=== PATIENT | female | born 1955 | race American Indian/Alaskan Native ===

== ENCOUNTER 2021-01-26 00:11 | Emergency (ER) | payer MEDICAID ==
[2021-01-26 00:37] VITALS: BP 160/79
[2021-01-26] MEDS ORDERED: ACETAMINOPHEN 500 MG TAB PO ONE (03:38)
--- NOTE | 2021-01-26 03:45 | Emergency Department Report ---
ED General Adult HPI - General Chief complaint: Skin/Abscess/Foreign Body Stated complaint: HERNIA Time Seen by Provider: 01/26/21 03:34 Source: patient Mode of arrival: Ambulatory Limitations: No Limitations - History of Present Illness Initial comments: Patient 65-year-old -Chinese female who presents for constipation x3 days., Patient states for 10 bilateral lower abdominal pain and cramping that is intermittent. States one small hard bowel movement today. With some relief however pain is returned. Patient states that secondary complaint of yeast and he will area. There is been no fever, chills, nausea or vomiting, patient is tolerating p.o. intake at this time. - Related Data Home Medications Medication Instructions Recorded Confirmed Last Taken ALPRAZolam [Alprazolam] 1 tab PO DAILY 11/17/15 11/17/15 11/16/15 Albuterol Sulfate [Ventolin HFA] 2 puff IH PRN 11/17/15 11/17/15 2 Weeks Ago ~11/03/15 Cetirizine HCl [ZyrTEC 10mg rapdis] 1 tab PO DAILY 11/17/15 11/17/15 11/16/15 Oxycodone HCl/Acetaminophen 1 tab PO Q6H PRN 11/17/15 11/17/15 11/16/15 [OxyCODONE-Acetaminophen 10-325] Previous Rx's Medication Instructions Recorded Last Taken Type traMADoL [Ultram 50 MG tab] 50 mg PO Q6HR PRN #20 tablet 11/14/15 Unknown Rx cephALEXin [Keflex] 500 mg PO Q8HR #21 cap 11/28/15 Unknown Rx HYDROcodone/APAP 5-325 [[place] 1 each PO Q6HR PRN #12 tablet 04/01/16 Unknown Rx 5-325 mg TAB] Clotrimazole 1% [Lotrimin 1%] 1 applic TP BID #1 tube 01/26/21 Unknown Rx bisacodyL [Dulcolax suppos] 10 mg [place] QDAY PRN #7 supp.rect 01/26/21 Unknown Rx polyethylene glycoL 3350 [Miralax 17 gm PO BID #14 packet 01/26/21 Unknown Rx 3350] Allergies Allergy/AdvReac Type Severity Reaction Status Date / Time ibuprofen Allergy Intermediate Hives Verified 11/17/15 12:19 tramadol AdvReac Headache Verified 04/01/16 00:04 ED Review of Systems ROS: Stated complaint: HERNIA Other details as noted in HPI Constitutional: denies: chills, fever Eyes: denies: eye pain, eye discharge, vision change ENT: denies: ear pain, throat pain Respiratory: denies: cough, shortness of breath, wheezing Cardiovascular: denies: chest pain, palpitations Endocrine: no symptoms reported Gastrointestinal: abdominal pain, constipation. denies: nausea, vomiting Genitourinary: denies: urgency, dysuria, discharge Musculoskeletal: denies: back pain, joint swelling, arthralgia Skin: denies: rash, lesions Neurological: denies: headache, weakness, paresthesias Psychiatric: denies: anxiety, depression Hematological/Lymphatic: denies: easy bleeding, easy bruising ED Past Medical Hx - Past Medical History Hx Hypertension: No Hx Congestive Heart Failure: No Hx Diabetes: No Hx Renal Disease: No Hx Arthritis: Yes (rheumatoid, osteoarthrits) Hx Headaches / Migraines: Yes (MIGRAINES) Hx Asthma: (Bronchitis) Hx COPD: No Hx HIV: No Additional medical history: osteoarthritis - Surgical History Hx Cholecystectomy: Yes Additional Surgical History: tubal ligation/D&C. right total knee replacement - Social History Smoking Status: Current Every Day Smoker Substance Use Type: Alcohol - Medications Home Medications: Home Medications Medication Instructions Recorded Confirmed Last Taken Type traMADoL [Ultram 50 MG tab] 50 mg PO Q6HR PRN #20 tablet 11/14/15 11/17/15 Unknown Rx ALPRAZolam [Alprazolam] 1 tab PO DAILY 11/17/15 11/17/15 11/16/15 History Albuterol Sulfate [Ventolin HFA] 2 puff IH PRN 11/17/15 11/17/15 2 Weeks Ago History ~11/03/15 Cetirizine HCl [ZyrTEC 10mg rapdis] 1 tab PO DAILY 11/17/15 11/17/15 11/16/15 History Oxycodone HCl/Acetaminophen 1 tab PO Q6H PRN 11/17/15 11/17/15 11/16/15 History [OxyCODONE-Acetaminophen 10-325] cephALEXin [Keflex] 500 mg PO Q8HR #21 cap 11/28/15 Unknown Rx HYDROcodone/APAP 5-325 [[place] 1 each PO Q6HR PRN #12 tablet 04/01/16 Unknown Rx 5-325 mg TAB] Clotrimazole 1% [Lotrimin 1%] 1 applic TP BID #1 tube 01/26/21 Unknown Rx bisacodyL [Dulcolax suppos] 10 mg [place] QDAY PRN #7 supp.rect 01/26/21 Unknown Rx polyethylene glycoL 3350 [Miralax 17 gm PO BID #14 packet 01/26/21 Unknown Rx 3350] ED Physical Exam - General Limitations: No Limitations General appearance: alert, in no apparent distress - Head Head exam: Present: atraumatic, normocephalic - Eye Eye exam: Present: normal appearance, EOMI Pupils: Present: normal accommodation - ENT ENT exam: Present: mucous membranes moist - Neck Neck exam: Present: normal inspection - Respiratory Respiratory exam: Present: normal lung sounds bilaterally. Absent: respiratory distress, wheezes, stridor - Cardiovascular Cardiovascular Exam: Present: regular rate, normal rhythm. Absent: systolic murmur, diastolic murmur, rubs, gallop - GI/Abdominal GI/Abdominal exam: Present: soft, tenderness (bilat lower abd obese), normal bowel sounds. Absent: distended, guarding, rebound, rigid, bruit, hernia - Rectal Rectal exam: Present: deferred - Extremities Exam Extremities exam: Present: normal inspection, full ROM. Absent: tenderness - Back Exam Back exam: Present: normal inspection, full ROM. Absent: CVA tenderness (R), CVA tenderness (L) - Neurological Exam Neurological exam: Present: alert, oriented X3, normal gait - Psychiatric Psychiatric exam: Present: normal affect, normal mood - Skin Skin exam: Present: warm, dry, intact, normal color. Absent: rash ED Course Vital Signs 01/26/21 00:35 Temperature 98.5 F Pulse Rate 83 Respiratory 18 Rate Blood Pressure 160/79 [Left] O2 Sat by Pulse 100 Oximetry ED Medical Decision Making - Radiology Data Radiology results: report reviewed, image reviewed INDICATION / CLINICAL INFORMATION: constipation .COMPARISON: None available. FINDINGS: There is mild gaseous prominence of small bowel loops in the left side of the abdomen. No abnormal dilatation, however. I do not see an excessive amount of stool throughout the colon. Minimal gas visualized in the rectum. No fecal impaction. Surgical clips are present in the right upper quadrant indicative of prior cholecystectomy. IMPRESSION: Slight gaseous prominence of small bowel in the left side of abdomen. This is nonspecific but could represent mild enteritis. There is no evidence of mechanical bowel obstruction. Signer Name: Gia Park MD Signed: 01/26/2021 4:44 AM Workstation Name: [id number] Transcribed By: Dictated By: Gia Park MD Electronically Authenticated By: Gia Park MD Signed Date/Time: 01/26/21443 DD/ 1 TD/TT: - Medical Decision Making KUB noted no signs of bowel obstruction, patient is tolerating p.o. intake without nausea or vomiting. We will treat for constipation, patient will continue to hydrate as currently. Patient will follow-up with primary care doctor in 2 to 3 days. There has been no fever, no chills, patient will be DC'd with prescriptions at this time. Patient verbalized agreement and understanding with same. Critical care attestation.: If time is entered above; I have spent that time in minutes in the direct care of this critically ill patient, excluding procedure time. ED Disposition Clinical Impression: Constipation Disposition: DC-01 TO HOME OR SELFCARE Is pt being admited?: No Does the pt Need Aspirin: No Condition: Stable Instructions: Constipation, Adult, [id number] Additional Instructions: take medication as prescribed, drink 1 gallon of water per day for next 3 days, follow up with your doctor in 2-3 days, return to emergency is symptoms worsen. Prescriptions: bisacodyL [Dulcolax suppos] 10 mg [place] QDAY PRN #7 supp.rect PRN Reason: Constipation Clotrimazole 1% [Lotrimin 1%] 1 applic TP BID #1 tube polyethylene glycoL 3350 [Miralax 3350] 17 gm PO BID #14 packet Referrals: PRIMARY MD MADELINE [Primary Care Provider] - 3-5 Days ROMY GREGORIO MD [Staff Physician] - 3-5 Days Forms: Work/School Release Form(ED) Time of Disposition: 05:08
--- NOTE | 2021-01-26 04:48 | XRay Report ---
ABDOMEN, SINGLE VIEW INDICATION / CLINICAL INFORMATION: constipation. COMPARISON: None available. FINDINGS: There is mild gaseous prominence of small bowel loops in the left side of the abdomen. No abnormal di latation, however. I do not see an excessive amount of stool throughout the colon. Minimal gas visual ized in the rectum. No fecal impaction. Surgical clips are present in the right upper quadrant indicative of prior cholecystectomy. IMPRESSION: Slight gaseous prominence of small bowel in the left side of abdomen. This is nonspecific but could represent mild enteritis. There is no evidence of mechanical bowel obstruction. Signer Name: Gia Park MD Signed: 01/26/2021 4:44 AM Workstation Name: [id number]
== END 2021-01-26 05:31 | disposition home or self-care (01) ==
LOC: ED 00:11
DX: K59.00 Constipation, unspecified (principal); M19.91 Primary osteoarthritis, unspecified site; G43.909 Migraine, unspecified, not intractable, without status migrainosus; F17.200 Nicotine dependence, unspecified, uncomplicated; Z90.49 Acquired absence of other specified parts of digestive tract; Z98.890 Other specified postprocedural states; Z79.899 Other long term (current) drug therapy; Z88.8 Allergy status to other drugs, medicaments and biological substances
CPT/HCPCS: 74018

== ENCOUNTER 2021-04-19 23:25 | Emergency (ER) | payer MEDICAID ==
[2021-04-20 07:37] VITALS: BP 127/76
== END 2021-04-20 08:00 ==
LOC: ED 23:25
DX: M79.606 Pain in leg, unspecified (principal); Z53.21 Procedure and treatment not carried out due to patient leaving prior to being seen by health care provider

== ENCOUNTER 2021-12-21 02:27 | Emergency (ER) | payer MEDICAID ==
[2021-12-21 02:42] VITALS: BP 160/91
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
== END 2021-12-21 12:00 | disposition home or self-care (01) ==
LOC: ED 02:27
DX: K59.00 Constipation, unspecified (principal); Z88.6 Allergy status to analgesic agent; Z88.5 Allergy status to narcotic agent; Z90.49 Acquired absence of other specified parts of digestive tract
CPT/HCPCS: 99283